=== PATIENT | female | born 1965 | race Caucasian/White ===

== ENCOUNTER 2016-08-05 09:03 | Day surgery (SDC) | payer OTHER ==
[2016-08-04 12:21] LABS: PLATELET COUNT 220 x10^3mcL (130-400); RED CELL DISTRIBUTION WIDTH 13.3 % (11.5-14.5)
[2016-08-04 12:24] LABS: microscopic required? YES; urine erythrocyte 1+ (NEGATIVE)
[2016-08-04 12:28] LABS: BASOPHIL % 4.8 % (0-2)
[2016-08-04 12:55] LABS: CARBON DIOXIDE 28.1 mmol/L (21-32); CHLORIDE SERUM 105 mmol/L (98-107); CREATININE SERUM 0.7 mg/dL (0.6-1.0); GFR1 > 60 mL/min; GLUCOSE SERUM 105 mg/dL (74-106); POTASSIUM SERUM 4.1 mmol/L (3.5-5.1); SODIUM SERUM 138 mmol/L (136-145)
[~2016-08-05] VITALS: Ht 165.1 cm; Wt 111.6 kg
[2016-08-05 09:18] VITALS: BP 147/86
[2016-08-05 14:57] VITALS: BP 119/78
== END 2016-08-05 14:05 | disposition home or self-care (01) ==
LOC: DS 09:03 → OR 10:30 → DS 10:30 → OR 11:25 → DS 14:05
PROVIDERS: Neuromusculoskeletal Medicine, Sports Medicine
PROC: 0RB Upper Joints, Excision (ICD-10-PCS; 2016-08-05)
PROC: 01N50ZZ Release Median Nerve, Open Approach (ICD-10-PCS; principal; 2016-08-05 09:30)
DX: G56.01 Carpal tunnel syndrome, right upper limb (principal); M65.9 Synovitis and tenosynovitis, unspecified; E66.01 Morbid (severe) obesity due to excess calories; Z68.41 Body mass index [BMI] 40.0-44.9, adult
CPT/HCPCS: J0690; J1885; J2001; J2405; J2704; J3010; J3490; J7120

== ENCOUNTER 2017-10-06 06:23 | Day surgery (SDC) | payer OTHER ==
[~2017-10-06] VITALS: Ht 165.1 cm; Wt 111.6 kg
[2017-10-06 06:21] VITALS: BP 151/99
[2017-10-06 12:16] VITALS: BP 125/74
== END 2017-10-06 12:05 | disposition home or self-care (01) ==
LOC: DS 06:23 → OR 07:30 → DS 12:05
PROVIDERS: Neuromusculoskeletal Medicine, Sports Medicine
PROC: 0RBP0ZZ Excision of Left Wrist Joint, Open Approach (ICD-10-PCS; 2017-10-06)
PROC: 01N50ZZ Release Median Nerve, Open Approach (ICD-10-PCS; principal; 2017-10-06 07:30)
DX: G56.02 Carpal tunnel syndrome, left upper limb (principal); M65.9 Synovitis and tenosynovitis, unspecified; I10 Essential (primary) hypertension; E66.01 Morbid (severe) obesity due to excess calories; Z68.42 Body mass index [BMI] 45.0-49.9, adult
CPT/HCPCS: J0690; J2250; J2270; J2405; J2704; J3010; J3490; J7120